=== PATIENT | male | born 2000 | race Caucasian/White ===

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

== ENCOUNTER 2022-06-10 14:30 | Emergency (ER) | payer MEDICAID, SELFPAY ==
[2022-06-10 14:38] VITALS: PULSE 88; RESP 15; TEMP 36.7; O2SAT 97
[2022-06-10 14:56] VITALS: PULSE 88; RESP 15; TEMP 36.7; O2SAT 97
--- NOTE | 2022-06-10 14:59 | ED.GENADUL_ITS ---
Discharge Plan Disposition Patient Disposition: Home Discharge Details Clinical Impression: Laceration of left thigh, Laceration of left index finger Primary Care Provider: Joni Pimentel ED Provider: Richard Mcdonnell Home Meds and New Rx's Prescriptions: Discontinued triamcinolone acetonide 0.1 % cream 1 applic topical BID Qty: 80 0RF Patient Comments: does not take anymore benzonatate 100 mg capsule 100 mg PO TID PRN (Reason: cough, congestion) Qty: 21 0RF Patient Comments: does not take anymore Discharge Instructions Instructions: Laceration (ED), Finger Laceration (ED) Additional Instructions: The tissue adhesive and Steri-Strips will begin to wear off after approximately 5 days time. May completely remove after 1 week. No swimming until healed. Return to the emergency [facility] for fever, redness, foul-smelling discharge from the wound or any other acute concerns. Continue your routine medications. Medical Decision Making 21-year-old male who cut himself the left index finger and left thigh with the tip of pruning christa. His tetanus is up-to-date. He has had no significant finger injury and there is no evidence of damage through the depth of the dermis. This was repaired with tissue adhesive. The left thigh wound was liberally irrigated and explored without evidence of foreign body. This too was repaired with tissue adhesive. Patient understands home care and stable for discharge to home HPI General Mode of arrival: ambulatory . Date/Time Provider Initiated Documentation: 06/10/22 14:44 . Limitations to Documentation: no limitations . Information obtained by: patient . History of Present Illness 21 year old M presents to the emergency department with the chief complaint of Laceration left finger, left thigh, described as mild, Quality is described as dull and constant, and is localized to the left, upper extremity and lower extremity. Patient reports no radiation. Patient started experiencing this minute(s) and it has been constant. No relieving factors improve symptom(s), No exacerbating factors reported . Patient did receive the following treatments prior to arrival, other (The wound was dressed. Tetanus is up-to-date) Related Data Allergies Allergy/AdvReac Type Severity Reaction Status Date / Time amoxicillin [Amoxicillin] Allergy Verified 06/10/22 14:56 ALL CILIINS Allergy Mild Uncoded 06/10/22 14:56 General Stated Complaint: Trauma BOOM: 3 Review of Systems Narrative: No other injuries. PFSH All Active Problems (Updated 06/10/22 @ 15:02 by Richard Mcdonnell MD) Laceration of left thigh (Acute) Laceration of left index finger (Acute) Nocturnal enuresis (Acute) ddavp- in past nml renal u/s 06/15 and urine p/Cr ratio Acne (Acute) topicals then doxy 05/16, topical 2020 - doing well Family history of factor V Leiden mutation (Acute 10/15/13) recommendations do not suggest need to screen for asymptomatic children dad a carrier only Medical History Acne Foot drop, right RESOLVED 02/14 PROBABLY INFLAMED PERONEAL NERVE WITH SQUATTING Vision abnormalities some blackouts & blurred vision Surgical History [place] teeth removed 07/31/20 Family History Father Myocardial infarction Factor 5 Leiden mutation, heterozygous Stroke Other Essential hypertension Uncle Neoplasm Paternal uncle - testicular cancer Other Family history of factor V Leiden mutation Social History Smoking/Tobacco Use Status: Never Second Hand Exposure: No Smoking risk assessment performed?: Yes Alcohol Intake: never Drug use: Never Substance use type: does not use Communication Needs: None current occupation: working in [employer] and [employer] Pets and animals: Yes (2 dogs) Pets and animals: dog(s) Do you feel safe at home: Yes Do you feel safe in your relationship?: Yes Exam Narrative Exam Narrative: GEN: awake, alert, oriented 3. Pleasant, well groomed, interactive. HEAD: Normocephalic, atraumatic NECK: Full ROM, no JOJO, no menigismus CHEST/RESP: No respiratory distress EXT: Full ROM, no edema, the left index finger has superficial abrasion overlying the distal phalanx. The left medial thigh has a 1 cm small laceration through the depth of the dermis. Neuro: Grossly normal neurologic exam, conversant, interactive. Psych: Speech fluent, thoughts congruent, affect normal Course Vital Signs Vital signs: Vital Signs Temperature 36.7 C 06/10/22 14:38 Pulse 88 06/10/22 14:38 Respiratory Rate 15 06/10/22 14:38 Pulse Oximetry 97 06/10/22 14:38 Temperature 36.7 C 06/10/22 14:56 Pulse 88 06/10/22 14:56 Respiratory Rate 15 06/10/22 14:56 Respiratory Effort Normal, Non-Labored 06/10/22 14:54 Respiratory Depth Normal 06/10/22 14:51 Respiratory Pattern Normal 06/10/22 14:51 Blood Pressure Position Sitting 06/10/22 14:38 Pulse Oximetry 97 06/10/22 14:56 Pain Level 4 06/10/22 14:38
== END 2022-06-10 15:06 | disposition home or self-care (01) ==
PROVIDERS: Emergency Provider Emergency Medicine; PCP Pediatrics
DX: S71.112A Laceration without foreign body, left thigh, initial encounter (principal); S61.211A Laceration without foreign body of left index finger without damage to nail, initial encounter; W29.3XXA Contact with powered garden and outdoor hand tools and machinery, initial encounter
CPT/HCPCS: 12001; 99283

== ENCOUNTER 2022-11-19 06:49 | Emergency (ER) | payer MEDICAID, SELFPAY ==
[2022-11-19 06:51] VITALS: BP 151/83; PULSE 68; RESP 20; TEMP 36.6; O2SAT 98
--- NOTE | 2022-11-19 07:03 | ED.GENADUL_ITS ---
Discharge Plan Discharge Details Chief Complaint: Trauma Clinical Impression: Contusion of jaw Primary Care Provider: Joni Pimentel ED Provider: Joni Bender Home Meds and New Rx's Prescriptions: No Action No Known Home Meds Medical Decision Making This is a pleasant 21-year-old male who presents today for left jaw pain after being kicked in the face by a cow. Past medical history is positive for family history of factor V Leiden mutation. Patient states that he was around a towel when it went and kicked him in the left jaw. He had no loss of consciousness. He recalls the entire event. He did take ibuprofen prior to arrival and this is helped with the pain. Pain is made worse with opening and closing of the jaw. He denies any headache or neck pain. No other complaints at this time. No other modifying factors. Exam demonstrates mild tenderness over the mid to lateral aspect of the left jaw. No evidence of tooth deformity or tongue biting. Mild bruising on the inside left cheek. Differential is highest for contusion of the parotid gland and the left jaw, however differential does include fracture. No evidence of dislocation. We will get CT imaging, give Tylenol, monitor closely and reassess. Patient will be signed out to my colleague Dr. Obregon for follow-up on imaging. HPI General Date/Time Provider Initiated Documentation: 11/19/22 06:55 . HPI Narrative: This is a pleasant 21-year-old male who presents today for left jaw pain after being kicked in the face by a cow. Past medical history is positive for family history of factor V Leiden mutation. Patient states that he was around a towel when it went and kicked him in the left jaw. He had no loss of consciousness. He recalls the entire event. He did take ibuprofen prior to arrival and this is helped with the pain. Pain is made worse with opening and closing of the jaw. He denies any headache or neck pain. No other complaints at this time. No other modifying factors. Related Data Home Medications Medication Instructions Recorded Confirmed Unknown [No Known Home Meds] 08/05/22 08/05/22 Allergies Allergy/AdvReac Type Severity Reaction Status Date / Time amoxicillin [Amoxicillin] Allergy Verified 08/05/22 13:08 ALL CILIINS Allergy Mild Uncoded 08/05/22 13:08 General Stated Complaint: Trauma BOOM: 3 Review of Systems All systems reviewed & are unremarkable except as noted in HPI and below PFSH All Active Problems (Updated 11/19/22 @ 07:22 by Joni Bender DO) Contusion of jaw (Acute) Nocturnal enuresis (Acute) ddavp- in past nml renal u/s 06/15 and urine p/Cr ratio Acne (Acute) topicals then doxy 05/16, topical 2020 - doing well Family history of factor V Leiden mutation (Acute 10/15/13) recommendations do not suggest need to screen for asymptomatic children dad a carrier only Medical History Acne Foot drop, right RESOLVED 02/14 PROBABLY INFLAMED PERONEAL NERVE WITH SQUATTING Vision abnormalities some blackouts & blurred vision Surgical History [place] teeth removed 07/31/20 Family History Father Myocardial infarction Factor 5 Leiden mutation, heterozygous Stroke Other Essential hypertension Uncle Neoplasm Paternal uncle - testicular cancer Other Family history of factor V Leiden mutation Social History Smoking/Tobacco Use Status: Never Second Hand Exposure: No Smoking risk assessment performed?: Yes Alcohol Intake: never Drug use: Never Substance use type: does not use Communication Needs: None current 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 3.ENT: Atraumatic external nose and ears. Moist MM. Neck: Symmetric, trachea midline, No thyromegaly. There is no evidence of raccoon eyes, su sign, CSF rhinorrhea, mastoid tenderness, cranial crepitus, hemotympanum, exophthalmos, or hyphema. Patient demonstrates intact dentition with no signs of tooth avulsion or fracture, no signs of jaw deformity, no evidence of a LeFort's fracture, with an intact palate, nose and orbital region. There is no evidence of a nasal septal hematoma. No proptosis. Jaw closes symmetrically. Airway is clear. Patient is able to break a tongue depressor in his teeth bilaterally. No evidence of mastication of the tongue. Mild bruising on the inside of the left cheek. Mild tenderness over the neck of the left jaw, but no asymmetry. 4.CVS: +S1/S2, No murmurs or gallops. Peripheral pulses 2+ and equal in all extremities. Brisk capillary refill in all extremities. 5.RESP: Unlabored respiratory effort. Clear to auscultation bilaterally. No wheezes rales or rhonchi 6.GI: Soft, Nontender/Nondistended, No hepatosplenomegaly. No guarding or rebound. 7.MSK: Normocephalic/Atraumatic, Extremities w/o deformity or ttp No cyanosis or clubbing, Normal movement of all extremities 8.Skin: Warm, Dry. No rashes or lesions. 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 Sensation grossly intact, no focal neurologic deficits. 10.Psych: (AAO) x3. Appropriate mood and affect Course Vital Signs Vital signs: Vital Signs Temperature 36.6 C 11/19/22 06:51 Pulse 68 11/19/22 06:51 Respiratory Rate 20 11/19/22 06:51 Blood Pressure 151/83 H 11/19/22 06:51 Pulse Oximetry 98 11/19/22 06:51 Temperature 36.6 C 11/19/22 06:51 Temperature Source Temporal Artery Scan 11/19/22 06:51 Pulse 68 11/19/22 06:51 Respiratory Rate 20 11/19/22 06:51 Blood Pressure 151/83 H 11/19/22 06:51 Pulse Oximetry 98 11/19/22 06:51 Oxygen Delivery Method Room Air 11/19/22 06:51 Oxygen Flow Rate 0 11/19/22 06:51
[2022-11-19] MEDS: Acetaminophen 500 MG TAB 1000 MG PO (07:15)
--- NOTE | 2022-11-19 07:30 | DI.CT_ITS ---
Exam(s) CT FACIAL WO EXAM: CT FACIAL WO CLINICAL HISTORY: kicked in left jaw by cow. TECHNIQUE: Imaging Protocol: Axial computed tomography images with coronal and sagittal reformatted images were created and reviewed COMPARISON: CT HEAD WITHOUT CONTRAST from 11/14/2014 FINDINGS: CT Face: Facial Bones: No definite fracture is noted in facial bones. Sinuses and Mastoids: Mucous retention cyst or polyp in the right maxillary sinus. The remaining vi sualized paranasal sinuses and mastoid air cells are clear. Globes, extraocular muscles, optic nerves and retrobulbar fat: Normal. Upper aerodigestive tract: Normal. Mandible and bilateral temporomandibular joints: Normal. Soft tissues: Normal. IMPRESSION: 1. No acute facial fracture. 2. Findings were discussed with the emergency department at 7:38 a.m. on 11/19/2022. RADIATION DOSE DELIVERED: 741.15mGy.cm Total DLP 741.15mGy.cm Total DLP DATA REPOSITORY: All CT scans at this facility are submitted to the National Radiology Data Registry (NRDR) Dose Index Registry (DIR) with the [employer] (ACR). RADIATION OPTIMIZATION: All CT scans at this facility use at least one of these dose optimization te chniques: automated exposure control; mA and/or kV adjustment per patient size (includes targeted exa ms where dose is matched to clinical indication); or iterative reconstruction.
[2022-11-19 07:48] VITALS: BP 118/82; PULSE 70; RESP 14; O2SAT 98
== END 2022-11-19 07:50 | disposition home or self-care (01) ==
PROVIDERS: Emergency Provider Student in an Organized Health Care Education/Training Program; PCP Pediatrics
DX: S00.83XA Contusion of other part of head, initial encounter (principal); W55.22XA Struck by cow, initial encounter
CPT/HCPCS: 99284; 70486; 99283

== ENCOUNTER 2023-03-28 19:12 | Emergency (ER) | payer MEDICAID, SELFPAY ==
[2023-03-28 19:15] VITALS: BP 135/55; PULSE 80; RESP 14; TEMP 38.2; O2SAT 97
--- NOTE | 2023-03-28 19:23 | ED.GENADUL_ITS ---
Discharge Plan Disposition Patient Disposition: Home Condition: Stable Discharge Details Clinical Impression: Fever, Pain in ear Primary Care Provider: Joni Pimentel ED Provider: Markell Munoz Home Meds and New Rx's Prescriptions: No Action No Known Home Meds Discharge Instructions Instructions: Earache (ED) Additional Instructions: Viral testing negative. Your ear does not appear infected today or had the appearance that would require antibiotic treatment. Continue Motrin or Tylenol as needed for pain. If your symptoms worsen, please follow-up with your primary care provider for reevaluation Medical Decision Making Emergent evaluation of left ear pain. Initial differential includes viral il lness, otitis externa, no symptoms concerning for mastoiditis. Elevated temp noted. I doubt that the ear based on this examination is causing the fever. He then reported that his family members tested positive for something, will test for viral illness. Viral testing is negative, I do not feel that the patient exam warrants antibiotic treatment at this time. Recommend Motrin Tylenol as needed for pain. Follow-up for reevaluation of symptoms persist or worsen. Lab Data Lab results reviewed: Yes I reviewed the patient's lab results. HPI General Date/Time Provider Initiated Documentation: 03/28/23 19:22 . Limitations to Documentation: no limitations . Information obtained by: patient . HPI Narrative: 22-year-old gentleman without significant past medical history presents for evaluation of left ear pain. Reports 2 days of symptoms. Pain localized to the left ear. Reports that this morning he woke up and he had yellow gunk on his pillow. Has been having a cough. Has not taken any medication for relief. Dad and sister recently tested positive for COVID or something Related Data Home Medications Medication Instructions Recorded Confirmed Unknown [No Known Home Meds] 08/05/22 03/28/23 Allergies Allergy/AdvReac Type Severity Reaction Status Date / Time amoxicillin [Amoxicillin] Allergy Verified 03/28/23 19:25 ALL CILIINS Allergy Mild Uncoded 03/28/23 19:25 General Stated Complaint: EarProblem BOOM: 4 PFSH All Active Problems (Updated 03/28/23 @ 20:23 by Markell Munoz MD) Pain in ear (Acute) Fever (Acute) Nocturnal enuresis (Acute) ddavp- in past nml renal u/s 06/15 and urine p/Cr ratio Acne (Acute) topicals then doxy 05/16, topical 2020 - doing well Family history of factor V Leiden mutation (Acute 10/15/13) recommendations do not suggest need to screen for asymptomatic children dad a carrier only Medical History Foot drop, right RESOLVED 02/14 PROBABLY INFLAMED PERONEAL NERVE WITH SQUATTING Acne Vision abnormalities some blackouts & blurred vision Surgical History [place] teeth removed 07/31/20 Family History Father Myocardial infarction Factor 5 Leiden mutation, heterozygous Stroke Other Essential hypertension Uncle Neoplasm Paternal uncle - testicular cancer Other Family history of factor V Leiden mutation Social History Smoking/Tobacco Use Status: Never Second Hand Exposure: No Smoking risk assessment performed?: Yes Alcohol Intake: never Drug use: Never Substance use type: does not use Communication Needs: None current occupation: working in [employer] and [employer] Pets and animals: Yes (2 dogs) Pets and animals: dog(s) Do you feel safe at home: Yes Do you feel safe in your relationship?: Yes Exam Narrative Exam Narrative: Review of Systems: All systems reviewed & are unremarkable except as noted in HPI and below Well-developed, no acute distress +febrile NACT PERRL, normal conjunctiva Left ear with mild erythema in the canal, TM intact, not bulging or erythematous No significant tenderness with ear movement, no mastoid tenderness. Ear not proptotic Oropharynx clear, no signs of dental infection RRR Unlabored respiratory effort Nondistended abdomen Extremities w/o deformity, no cyanosis, no edema No rashes or lesions. no focal neurologic deficits Appropriate mood and affect Course Vital Signs Vital signs: Vital Signs Temperature 38.2 C H 03/28/23 19:15 Pulse 80 03/28/23 19:15 Respiratory Rate 14 03/28/23 19:15 Blood Pressure 135/55 L 03/28/23 19:15 Pulse Oximetry 97 03/28/23 19:15 Temperature 38.2 C H 03/28/23 19:15 Temperature Source Temporal Artery Scan 03/28/23 19:15 Pulse 80 03/28/23 19:15 Respiratory Rate 14 03/28/23 19:15 Blood Pressure 135/55 L 03/28/23 19:15 Blood Pressure Position Sitting 03/28/23 19:15 Pulse Oximetry 97 03/28/23 19:15 Oxygen Delivery Method Room Air 03/28/23 19:15 Oxygen Flow Rate 0 03/28/23 19:15 Pain Level 6 03/28/23 19:15
[2023-03-28 19:28] VITALS: BP 134/55; PULSE 80; RESP 14; TEMP 38.2; O2SAT 97
[2023-03-28] MEDS: Acetaminophen 500 MG TAB 1000 MG PO (19:39)
[2023-03-28 20:12] LABS: COVID-19 PCR Negative (Negative); Influenza A PCR Negative (Negative); Influenza B PCR Negative (Negative); RSV PCR Negative (Negative)
[2023-03-28 20:17] LABS: Source Nasopharynx
== END 2023-03-28 20:28 | disposition home or self-care (01) ==
PROVIDERS: Emergency Provider Emergency Medicine; PCP Pediatrics
DX: H92.02 Otalgia, left ear (principal); R50.9 Fever, unspecified; Z11.52 Encounter for screening for COVID-19
CPT/HCPCS: 87637; 99282

== ENCOUNTER 2023-04-03 08:24 | Emergency (ER) | payer MEDICAID, SELFPAY ==
[2023-04-03 08:27] VITALS: BP 149/56; PULSE 74; RESP 16; TEMP 36.8; O2SAT 99
[2023-04-03 08:38] VITALS: BP 149/56; PULSE 74; RESP 16; TEMP 36.8; O2SAT 99
--- NOTE | 2023-04-03 08:39 | W.ED.GENAD ---
HPI General Stated Complaint: RespSymp BOOM: 4 Date/Time Provider Initiated Documentation: 04/03/23 08:32. Limitations to Documentation: no limitations. Information obtained by: patient. HPI Narrative: Time seen was 8:45 AM in bed 5. The patient is a healthy 22-year-old male who presents with approximately 10 days of the respiratory illness which began on 03/24/2023. He tells me initially he had L ear pain and a sore throat, both of which have improved and only lasted a day. He states he has had a mild headache and chest congestion. He also states that he has had a cough which is occasionally productive of yellow-white sputum. He also tells me he has had a fever at home to 103.0 F taken with a forehead thermometer. His cough is keeping him awake at night. He has been immunized for COVID. The patient was seen here one week ago, and tells me that he was diagnosed with a viral infection. 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 He denies and neck pain or stiffness, no rashes, no GI symptoms. no rashes, no urinary complaints. Related Data Home Medications Medication Instructions Recorded Confirmed Unknown [No Known Home Meds] 08/05/22 04/03/23 Allergies Allergy/AdvReac Type Severity Reaction Status Date / Time amoxicillin [Amoxicillin] Allergy Verified 04/03/23 08:30 ALL CILIINS Allergy Mild Uncoded 04/03/23 08:30 Review of Systems Narrative: see hpi PFSH All Active Problems (Updated 04/03/23 @ 10:41 by Vanita Yañez MD) Upper respiratory infection, viral (Acute) Pain in ear (Acute) Fever (Acute) Nocturnal enuresis (Acute) ddavp- in past nml renal u/s 06/15 and urine p/Cr ratio Acne (Acute) topicals then doxy 05/16, topical 2020 - doing well Family history of factor V Leiden mutation (Acute 10/15/13) recommendations do not suggest need to screen for asymptomatic children dad a carrier only Medical History Foot drop, right RESOLVED 02/14 PROBABLY INFLAMED PERONEAL NERVE WITH SQUATTING Acne Vision abnormalities some blackouts & blurred vision Surgical History [place] teeth removed 07/31/20 Family History Father Myocardial infarction Factor 5 Leiden mutation, heterozygous Stroke Other Essential hypertension Uncle Neoplasm Paternal uncle - testicular cancer Other Family history of factor V Leiden mutation Social History Smoking/Tobacco Use Status: Never Second Hand Exposure: No Smoking risk assessment performed?: Yes Alcohol Intake: never Drug use: Never Substance use type: does not use Communication Needs: None 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 He is mildly hypertensive with a BP of 149/56. He is not tachycardic, tachypneic or febrile. He has a normal RA O2 sat of 99%. He has normal phonation. He does not appear toxic. Const General: cooperative, healthy appearing, comfortable, no acute distress, well developed, well groomed and well hydrated Nutritional Appearance: average body habitus and well nourished Orientation: alert, awake and oriented x3 HENMT Head: normal to inspection, normocephalic and atraumatic Ears: hearing grossly normal bilaterally, external ears normal and TM's normal bilaterally General nose exam: external nose normal, nares normal and other (mucosa of nares slightly erythematous. normal septum.) Face and sinus: normal facial exam, sinuses nontender, face symmetric and no sinus tenderness Mouth: oral mucosae normal, lip normal, tongue normal, oropharynx normal, moist mucous membranes and other (Normal phonation. The patient is handling secretions.) Throat: posterior oropharynx normal and uvula midline Eyes General: appearance normal, both eyes and all related structures Eyelids: eyelids normal Conjunctivae: conjunctivae normal Sclera: sclerae normal Cornea: corneas normal Pupils: PERRL EOM: EOM intact bilaterally and No nystagmus Direct ophthalmoscopy: normal light reflex Other: no photophobia Neck Neck: normal visual inspection, full ROM, no lymphadenopathy, no meningeal signs, trachea midline, supple and no anterior neck swelling Lymphatic: no lymphadenopathy noted Chest Chest: normal inspection of the chest Resp Effort & Inspection: normal respiratory effort, able to speak in complete sentences, no audible wheezes, no nasal flaring, no respiratory distress, no retractions, no stridor, not tachypneic, no tracheal deviation, no use of accessory muscles, prolonged expiratory phase and other Auscultation: clear to auscultation bilaterally, abnormal I/E ratio, no rales, no rhonchi, no wheezes and no rubs Tactile Fremitus: tactile fremitus absent Other: The patient has a prolonged exp phase. I cannot appreciate any wheezing rales or rhonchi. Cardio Jugular venous pressure: no JVD Palpation: normal PMI Rate: regular rate Rhythm: regular rhythm Heart Sounds: S1 normal, S2 normal, no gallops, no murmurs and no rubs GI Inspection: non-distended Palpation: soft, no hepatosplenomegaly, no guarding and nontender Percussion: normal to percussion Auscultation: normal bowel sounds General: No CVA tenderness Back/Spine/Pelvis Back: no CVA tenderness and No back tenderness Cervical Spine: normal cervical lordosis, cervical ROM normal, No cervical muscular tenderness, No pain with cervical ROM, No cervical spinal tenderness and No step off deformity Thoracic/Lumbar Spine: thoracic and lumbar spine normal to inspection, No thoracic spinal tenderness and No lumbar spinal tenderness Pelvis: no pain with anterior-posterior compression and no pain with lateral compression Skin General skin exam: no rashes or lesions noted, turgor normal, no petechiae, no purpura and other (Skin is normal for ethnicity.) Lesions: no lesions Rashes: no rashes Trauma: no lacerations or abrasions Neuro General: patient alert, patient awake, patient oriented x3, moves all extremities, no meningeal signs, no focal motor deficits and CN's II-XI intact bilaterally Cranial Nerves: CN's II-XI intact bilaterally, PERRL, accommodation normal, EOM intact bilaterally, no nystagmus, facial strength normal, tongue midline, hearing normal and no nystagmus Cognition: normal cognition Speech: speech normal Gait: normal gait Motor: muscle tone normal throughout and strength 5/5 throughout Sensory Exam: no sensory deficits noted Extrem General: normal to inspection, full ROM, capillary refill normal, no clubbing, cyanosis or edema and no calf tenderness Psych Appearance: grossly normal Affect: normal affect Attitude: cooperative Thought Process: normal Thought Content: normal Insight: insight good Judgment: judgment good Other: The patient appears to have capacity make medical decisions. Course 10:35 AM I have reviewed the patient's sinus films lab work and chest x-ray. He feels improved after a DuoNeb. Improved air movement. I haved advised the patient on the results of his tests. I have advised him to use his MDI w/spacer, 3 puffs, 5 min apart q4h prn. I have asked to have him get a new PCP for out patient follow up. I have advised him to return here for any new or worrisome symptoms. He voiced understanding and agreement with the discharge plan. All his questions and concerned were addressed prior to discharge. Reevaluation(s) Time: 10:38 Reevaluation: Improved aeration Vital Signs Vital signs: Vital Signs Temperature 36.8 C 04/03/23 08:27 Pulse 74 04/03/23 08:27 Respiratory Rate 16 04/03/23 08:27 Blood Pressure 149/56 H 04/03/23 08:27 Pulse Oximetry 99 04/03/23 08:27 Temperature 36.8 C 04/03/23 08:38 Temperature Source Temporal Artery Scan 04/03/23 08:38 Pulse 74 04/03/23 08:38 Respiratory Rate 16 04/03/23 08:38 Respiratory Effort Normal, Non-Labored 04/03/23 08:32 Respiratory Depth Normal 04/03/23 08:32 Blood Pressure 149/56 H 04/03/23 08:38 Blood Pressure Position Sitting 04/03/23 08:38 Pulse Oximetry 99 04/03/23 08:38 Oxygen Delivery Method Room Air 04/03/23 08:38 Oxygen Flow Rate 0 04/03/23 08:38 Medical Decision Making This is a healthy 22 yo M who presents with 1 week h/o of an URI.No evidence of hypoxia or respiratory distress. He is complaning of headache but does not have any signs of meningitis or encephalitis, including having normal mental status, nontoxic appearance, no photophobia, rash or meningeal signs. He was seen here on 03/28/23 and I have reviewed that record. He was negative for COVID, flu and RSV. I will repeat these in case he had a previous false negative result. He is still complaining of nasal/facial congestion and I will order limited sinus xrays to rule out bacterial sinusitis and/or airfluid levels or unilateral opacification. I will also order a CXR to rule out pneumonia. Although I cannnot hear any wheezing, he does have a prolonged expiratory phase. I will order a duoneb and if he has subjective improvement, I will likely discharge him home with a MDI + spacer. If there is evidence of bacterial pneumonia or sinusitis, I will discharge him with appropriate abx. I will reassess after duo neb. 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 Differential Diagnosis Differential Diagnosis: viral URI, sinusitis, pneumonia, bronchospasm Medical Records Medical records reviewed: Yes I reviewed the patient's medical records. Imaging Data Radiologic Study: Imaging: X-Ray (X-ray sinus) Radiologist's impression: V rad impression: Unremarkable Radiologic Study #2: Imaging: X-Ray (Chest) Radiologist's impression: vRad impression no acute findings Lab Data Lab results reviewed: Yes I reviewed the patient's lab results. Lab results narrative: COVID FLU RSV NEG Quality:SDOH Health Related Social Needs: No Data to Display Discharge Plan Disposition Patient Disposition: Home Discharge Details Clinical Impression: Upper respiratory infection, viral Primary Care Provider: Joni Pimentel ED Provider: Vanita Yañez Home Meds and New Rx's Prescriptions: No Action No Known Home Meds Discharge Instructions Instructions: Upper Respiratory Infection (ED) Additional Instructions: 1. You will be called by a PCP so he can establish care with an adult primary care provider. 2. Use your albuterol MDI plus spacer, 3 puffs, 5 minutes apart every 4 hours as needed for cough and/or wheezing. 3. Return here for any new or worrisome symptoms. Discharge Data Discharge Date/Time-TO BE ENTERED AT DEPARTURE: 04/03/23 10:49 Discharge Physician: Vanita Yañez
--- NOTE | 2023-04-03 08:45 | DI.RAD_ITS ---
Exam(s) XR SINUS LIMITED 2V EXAM: XR SINUS LIMITED 2V CLINICAL HISTORY: sinus pain, congestion. TECHNIQUE: 2D digital imaging was performed. COMPARISON: CT CT FACIAL WO from 11/19/2022 FINDINGS: The paranasal sinuses are clear. No evidence of air-fluid level. The nasal septum is midline. IMPRESSION: Unremarkable radiographs of the sinuses. DATA REPOSITORY: RADIATION DOSE DELIVERED:
--- NOTE | 2023-04-03 08:45 | DI.RAD_ITS ---
Exam(s) XR CHEST 2V PA LATERAL EXAM: XR CHEST 2V PA LATERAL CLINICAL HISTORY: cough TECHNIQUE: 2D digital imaging was performed of the chest. Two images were obtained. PA and lateral views were obtained. COMPARISON: CR,XR XR CHEST 2V PA LATERAL from 09/06/2020 FINDINGS: MEDIASTINUM: Normal. HEART: Normal. PULMONARY VASCULATURE: Normal. LUNGS: Clear. PLEURAL SPACE: No pleural effusion or pneumothorax. BONE:Within normal limits for the patient's age. OTHER FINDINGS:Normal. IMPRESSION: No acute pulmonary findings. DATA REPOSITORY: RADIATION DOSE DELIVERED:
[2023-04-03] MEDS: Acetaminophen 500 MG TAB 1000 MG PO (09:24)
[2023-04-03 09:26] LABS: COVID-19 PCR Negative (Negative); Influenza A PCR Negative (Negative); Influenza B PCR Negative (Negative); RSV PCR Negative (Negative)
[2023-04-03 09:27] LABS: Source Nasopharynx
[2023-04-03] MEDS: Albuterol/Ipratropium 3 ML UPD VIAL UPD (09:41)
--- NOTE | 2023-04-03 09:43 | DI.VRAD_ITS ---
PROCEDURE INFORMATION: Exam: XR Sinus Exam date and time: 04/03/2023 9:34 AM Age: 22 years old Clinical indication: Other: Sinus pain, congestion TECHNIQUE: Imaging protocol: XR of the sinuses and paranasal structures. Views: Less than 3 views. COMPARISON: No relevant prior studies available. FINDINGS: Sinuses: Well aerated. No opacification. Bones/joints: No fracture. Soft tissues: Unremarkable. IMPRESSION: Unremarkable. Dictated and Authenticated by: Francesco Chilel MD. Ordering:ARMEN Waldron MD
--- NOTE | 2023-04-03 09:46 | DI.VRAD_ITS ---
PROCEDURE INFORMATION: Exam: XR Chest Exam date and time: 04/03/2023 9:36 AM Age: 22 years old Clinical indication: Cough TECHNIQUE: Imaging protocol: Radiologic exam of the chest. Views: 2 views. COMPARISON: CT CHEST PE CTA 09/06/2020 9:58 AM FINDINGS: Lungs: Unremarkable. No consolidation. Pleural spaces: Unremarkable. No pleural effusion. No pneumothorax. Heart/Mediastinum: Unremarkable. No cardiomegaly. Bones/joints: Unremarkable. IMPRESSION: No acute findings. Dictated and Authenticated by: Francesco Chilel MD. Ordering:ARMEN Waldron MD
--- NOTE | 2023-04-03 10:41 | NUR.NOTE ---
Referral given to Care Management for needs PCP, viral URI in 2 weeks. Nursing Note:
[2023-04-03] MEDS: Albuterol HFA 8 GM 60 PUFF INH IH (10:47)
[2023-04-03] MEDS: Inhaler, Assist Device 1 EACH MC (10:47)
== END 2023-04-03 10:49 | disposition home or self-care (01) ==
PROVIDERS: Emergency Provider Emergency Medicine Emergency Medical Services; PCP Pediatrics
DX: R51.9 Headache, unspecified; J06.9 Acute upper respiratory infection, unspecified; R05.1 Acute cough; R09.81 Nasal congestion
CPT/HCPCS: 87637; 94640; 99284; 70210; 71046; 99283; J7620

== ENCOUNTER 2023-05-13 16:47 | Emergency (ER) | payer MEDICAID, SELFPAY ==
[2023-05-13] VITALS (26 sets, daily range): BP systolic 143–154; BP diastolic 67–74; PULSE 59–86; RESP 16–22; TEMP 37.3; O2SAT 96–100
--- NOTE | 2023-05-13 17:00 | RT.EKG_ITS ---
APPROVED REPORT Exam: Resting ECG Reason for Exam: passed out Patient Location: E HR:66 bpm ECG Measurements Heart Rate 66 AXIS NH 146 P 95 QRSd 98 QRS 84 QT 365 T 38 QTc 384 Conclusion Sinus rhythm...normal P axis, V-rate 60- 99 ST elev, probable normal early repol pattern...ST elevation, age<55 Narrow complex normal sinus rhythm at a rate of 66. Right axis deviation. NH and QTc within normal limits. Mild ST segment depressions inferior leads new compared to prior dated 3 years ago. No T w ave inversions. No acute injury pattern. Right axis deviation is persistent.
--- NOTE | 2023-05-13 17:14 | ED.GENADUL_ITS ---
HPI General Date/Time Provider Initiated Documentation: 05/13/23 17:14 . [facility] Narrative: MDM This is an overall very well-appearing normothermic and not tachycardic 22-year-old male with chest pain syncope for which ECG and lab work were obtained and were reassuring. In the emergency department patient subsequently developed right and then left arm numbness for which it CT scan was performed. In the absence of any focal weakness I did not feel that the patient was a tPA candidate developed I did not feel he required transfer for MRI. Furthermore his bilateral upper extremity numbness did not match anatomically with any neurological distribution. No tonic-clonic activity to suggest benefit from EEG. No nuchal rigidity nor fevers nor petechial rash so my suspicion was exceedingly low for meningitis so I did not feel that the patient required a lumbar puncture. No tearing quality to suggest aortic dissection. No positional quality to suggest pericarditis. No pleuritic quality and patient is PERC negative so I did not obtain a D-dimer. No rash to chest to suggest zoster. No pain out of proportion to suggest necrotizing soft tissue infection. Given that the patient's syncopal episode occurred earlier this afternoon we will obtain a single troponin and if this is negative will be reassured against ACS. Patient is not a dialysis patient nor is he hypotensive nor tachycardic so my suspicion for tamponade is exceedingly low. Equal breath sounds and no signs of trauma to the chest so my suspicion for pneumothorax is extremely low. Nonetheless we will obtain chest x-ray. No abdominal pain nor any significant recent emesis to suggest increased risk for esophageal rupture. There is family history of premature coronary artery disease but no family history of sudden cardiac . Patient's vital signs are notable for mildly elevated blood pressure which is similar to prior measurements in the past. HEART SCORE Chest pain Diagnostic Protocol: [-History/Physical/Gestalt: Slightly Suspicious (0)] [-EKG: Normal and/or unchanged from prior EKG (0)] [-AGE: less than 45 (0)] [- RISK FACTORS: 1 - 2 risk factors (+1)] [-TROPONIN: <= normal limit (0)] - TOTAL SCORE: 1 - Risk Factors: DM, current or recent smoker, HTN, HLD, family hx of CAD, obesity - INTERPRETATION: With a total score of 3 or less, risk of major cardiac event within six weeks 1.7%, likely lower with two negative troponins. [I explained to the patient that the risk of subsequent major cardiac event within 1 month is not 0, however risk predicted to be less than 2%. Patient verbalized understanding, accepts this risk and shared and the decision for discharge with PCP follow-up for further evaluation and management. They understand to return to the ED immediately with any worsening symptoms, new symptoms or other concerns.] In the setting of syncope I considered: High risk features: 1. Age of the patient (elderly a greatest risk) 2. Syncope during exertion 3. Family history of sudden Falkner syncope rule: 1. History of CHF 2. Hematocrit < 30 3. EKG abnormalities 4. Present shortness of breath 5. Systolic blood pressure less than 90 Cardiac arrhythmia/EKG or abnormalities considered: 1. ACS: No ST changes 2. Tachy-kimmy: No blocks 3. WPW: No delta wave 4. Brugada: No RSR'; R-bundle appearance 5. HCM: No LVH; needle Qs/ T-wave inversions 6. Short/ Long QT: 300 < QTc < 500; no family hx 7. Arrhythmogenic Right Ventricular Dysplasia: No epsilon wave, no inverted Ts in anterior precordium 7:23 PM Patient metabolic panel with no KOBE. Mild hyperglycemia but no anion gap and normal bicarbonate??not consistent with DKA. Very mild hypokalemia with a serum potassium of 3.4. CBC lacks anemia thrombocytopenia and leukocytosis. Troponin is negative. Chest x-ray read as no acute cardiopulmonary process. 9:25 PM I spoke with Dr. Van from [facility] [place] who reviewed the patient's CT as radiology had initially called a well circumscribed 1 cm low-attenuation area concern for the possibility of a lacunar infarct. These did not align with the patient's symptoms and he felt that this was actually the sulcus. In the setting of the normal CT I met with the patient and his mother and explained the patient's reassuring evaluation in the emergency department. We discussed return indications including any recurrent syncope any worsening chest pain or any other concerns. I have asked health unit trust manager Modesta to have patient seen next week by his primary care provider. He may benefit from an outpatient Holter monitor or possibly an echocardiogram but will defer these decisions to the patient's primary care provider. We discussed return to the emergency department for worsening chest pain any recurrent syncope or any other concerns. Patient understood his return indication was discharged with empiric trial of expectant outpatient management. Chronic conditions affecting the care of the patient: N/A History obtained from an outside historian: Patient's mother External record review: N/A Diagnostic interpretations performed by me: Per my independent interpretation chest x-ray shows: No acute cardiopulmonary process Per my independent interpretation EKG shows: Narrow complex normal sinus rhythm at a rate of 66. Right axis deviation. AK and QTc within normal limits. Mild ST segment depressions inferior leads new compared to prior dated 3 years ago. No T wave inversions. No acute injury pattern. Right axis deviation is persistent. ]Medications: N/A Social determinants of health affecting disposition: N/A Management discussed with: Neurology [facility] [place] Treatment/interventions considered: N/A Response to therapies provided: N/A HPI This is a previously healthy 22-year-old male up-to-date with immunizations arriving to the emergency department via private vehicle with his mother in the setting of syncope. Patient reportedly went to work normally today. He returned home and sat down. He stood to stand and began coughing. He walked into the bathroom and felt unsteady. Subsequently he left the bathroom and stumbled hitting his shoulder on the wall. He subsequently sat back down on the toilet in the bathroom. He passed out. He was dizzy beforehand. He did not hit his head. He did not lose control of his bowels or bladder. There is no family history of any sudden cardiac . He has had chest pain intermittently throughout the day today lasting anywhere between 2 and 10 seconds. It is on the left side of his chest. He has not noticed any rash to his chest. His chest pain is not positional nor pleuritic. He received all his immunizations for childhood. He takes no acute medications. He had cough and cold symptoms since [place]. No history of PE or DVT. Patient's father reportedly had a myocardial infarction when he was 36 years old in 2007 which was not initially detected on laboratory evaluation milrinone blood work. He has subsequently had a CVA. Exam General: Well-appearing in no acute distress speaking in complete sentences. Head: Normocephalic, atraumatic. Eye:[Pupils equal, round reactive to light.] Extraocular eye movements intact. No conjunctival injection. No scleral icterus. Ear, nose, mouth, throat: Grossly normal inspection. Normal voice, handling secretions normally. Neck: Trachea midline. Cardiovascular: Well-perfused distal extremities. Regular rate and rhythm. Respiratory: Nonlabored respiration. Clear lungs bilaterally. Gastrointestinal: Nondistended abdomen. Soft nontender. Musculoskeletal: No edema. Moving all 4 extremities spontaneously. Skin: Normal for age and race, grossly normal temperature and turgor. No acute rash. Neurologic: Alert and appropriate, no apparent acute deficits. Cranial nerves II through XII intact grossly. 5 out of 5 bilateral upper lower extremity strength. No pronator drift. 5/5 lower extremity strength. Patient does have slightly decreased sensation in his right upper extremity in the hand. On subsequent reassessment patient had slightly decreased sensation in his left up per extremity and hand. Psychiatric: Mood and manner are appropriate. Grooming and personal hygiene are appropriate. Related Data Home Medications Medication Instructions Recorded Confirmed Unknown [No Known Home Meds] 08/05/22 05/13/23 Allergies Allergy/AdvReac Type Severity Reaction Status Date / Time amoxicillin [Amoxicillin] Allergy Hives Verified 05/13/23 17:54 ALL CILIINS Allergy Mild Hives Uncoded 05/13/23 17:54 General Stated Complaint: Dizzy/Sync BOOM: 2 Course Vital Signs Vital signs: Vital Signs Temperature 37.3 C 05/13/23 17:06 Pulse 83 05/13/23 17:06 Respiratory Rate 16 05/13/23 17:06 Blood Pressure 143/71 H 05/13/23 17:06 Pulse Oximetry 97 05/13/23 17:06 Temperature 37.3 C 05/13/23 17:06 Temperature Source Tympanic 05/13/23 17:06 Pulse 83 05/13/23 17:06 Respiratory Rate 16 05/13/23 17:06 Blood Pressure 143/71 H 05/13/23 17:06 Blood Pressure Position Sitting 05/13/23 17:06 Pulse Oximetry 97 05/13/23 17:06 Oxygen Delivery Method Room Air 05/13/23 17:06 Oxygen Flow Rate 0 05/13/23 17:06 Pain Level 0 05/13/23 17:06 Medical Decision Making Quality:SDOH Health Related Social Needs: No Data to Display PFSH All Active Problems (Updated 05/13/23 @ 19:25 by Dominick Valenzuela MD) Chest pain, unspecified (Acute) Arm numbness (Acute) Nocturnal enuresis (Acute) ddavp- in past nml renal u/s 06/15 and urine p/Cr ratio Acne (Acute) topicals then doxy 05/16, topical 2020 - doing well Family history of factor V Leiden mutation (Acute 10/15/13) recommendations do not suggest need to screen for asymptomatic children dad a carrier only Medical History Foot drop, right RESOLVED 02/14 PROBABLY INFLAMED PERONEAL NERVE WITH SQUATTING Acne Vision abnormalities some blackouts & blurred vision Surgical History [place] teeth removed 07/31/20 Family History Father Myocardial infarction Factor 5 Leiden mutation, heterozygous Stroke Other Essential hypertension Uncle Neoplasm Paternal uncle - testicular cancer Other Family history of factor V Leiden mutation Social History Smoking/Tobacco Use Status: Never Second Hand Exposure: No Smoking risk assessment performed?: Yes Alcohol Intake: never Drug use: Never Substance use type: does not use Housing: house Communication Needs: None current occupation: working in [employer] Pets and animals: Yes (2 dogs) Pets and animals: dog(s) Do you feel safe at home: Yes Do you feel safe in your relationship?: Yes Discharge Plan Disposition Patient Disposition: Home Discharge Details Clinical Impression: Arm numbness, Chest pain, unspecified Primary Care Provider: Joni Pimentel ED Provider: Dominick Valenzuela Home Meds and New Rx's Prescriptions: No Action No Known Home Meds Discharge Instructions Instructions: Chest Pain (ED) Additional Instructions: You are seen in the emergency department for your chest pain and arm numbness. Your EKG and blood work showed no sign of heart attack. Your CAT scan showed no sign of a stroke. As we discussed please return to the emergency department if you develop weakness if you pass out or develop any black or bloody stools or if you have any other concerns. Otherwise please follow-up with your primary care provider next week.
[2023-05-13 17:50] LABS: Abs Immature Grans 0.02 10^3/uL (0.0-0.06); Absolute Basophil Count 0.06 10^3/uL (0.0-0.2); Absolute Eosinophil Count 0.29 10^3/uL (0.0-0.7); Absolute Lymphocyte Count 1.96 10^3/uL (1.2-3.4); Absolute Monocyte Count 1.15 10^3/uL (0.1-0.8); Basophils % 0.6; Eosinophils % 2.7; HCT 45.1 % (40.0-50.0); HGB 15.5 g/dL (13.5-17.5); Immature Grans % 0.2; Lymphocytes % 18.4; MCHC 34.4 % (32.0-36.0); MCV 85 fL (80-95); MPV 9.2 fL (8.0-11.0); Monocytes % 10.8; Neutrophils % 67.3; Platelet Count 228 10^3/uL (130-400); RBC 5.34 10^6/uL (4.36-5.78); RDW-SD 36.6 fL; WBC 10.68 10^3/uL (4.4-10.8)
[2023-05-13] MEDS: Normal Saline 500 ML IV (17:53)
--- NOTE | 2023-05-13 18:00 | DI.RAD_ITS ---
Exam(s) XR CHEST 2V PA LATERAL EXAM: XR CHEST 2V PA LATERAL CLINICAL HISTORY: Chest pain TECHNIQUE: 2D digital imaging was performed. COMPARISON: CR,XR XR CHEST 2V PA LATERAL from 04/03/2023 FINDINGS: HEART: Normal size. Aorta: Not dilated. PULMONARY VASCULATURE: Normal. LUNGS: Clear. PLEURAL SPACE: No pleural effusion or pneumothorax. BONE:Unremarkable for age. Soft tissues: Unremarkable. IMPRESSION: No acute abnormality. DATA REPOSITORY: RADIATION DOSE DELIVERED:
[2023-05-13 18:18] LABS: Anion Gap 9.6 mmol/L (3-11); BUN 14 mg/dL (7-18); CO2 29.4 mmol/L (21.0-32.0); CREATININE 0.8 mg/dL (0.70-1.30); Chloride 103 mmol/L (98-107); Estimated GFR 129.93 (mL/min/1.73m2); Glucose 114 mg/dL (74-106); Potassium 3.4 mmol/L (3.5-5.1); Sodium 142 mmol/L (136-145); Troponin I < 50 ng/L (< or =60)
--- NOTE | 2023-05-13 19:00 | DI.CT_ITS ---
Exam(s) CT HEAD WO EXAM: CT HEAD WO CLINICAL HISTORY: Intermittent right arm numbness. TECHNIQUE: Imaging Protocol: Axial computed tomography images with coronal and sagittal reformatted images were created and reviewed COMPARISON: CT HEAD WITHOUT CONTRAST from 11/14/[address] FACIAL WO from 11/19/2022 FINDINGS: Ventricles and Extra axial spaces: Normal in size and morphology for the patient's age. Hemorrhage: None. Cerebral parenchyma: Normal. The low attenuation area noted between the frontal and temporal lobes on the right described on the V Rad report has a similar appearance to prior examination from 2014 and appears to represent the normal sulcus. Midline shift: None. Brainstem/Cerebellum: Normal. Calvarium: Normal. Visualized Paranasal sinuses/Mastoids: Mucosal thickening in the ethmoid air cells. No air-fluid lev els are seen in the sinuses. Soft Tissues: Unremarkable. IMPRESSION: No acute intracranial process. If there is continued clinical concern, an MRI may be obtained for fu rther evaluation. RADIATION DOSE DELIVERED: 868.91mGy.cm Total DLP DATA REPOSITORY: All CT scans at this facility are submitted to the National Radiology Data Registry (NRDR) Dose Index Registry (DIR) with the [employer] (ACR). RADIATION OPTIMIZATION: All CT scans at this facility use at least one of these dose optimization te chniques: automated exposure control; mA and/or kV adjustment per patient size (includes targeted exa ms where dose is matched to clinical indication); or iterative reconstruction.
--- NOTE | 2023-05-13 19:48 | DI.VRAD_ITS ---
Addendum created by Sincere Turner MD on 05/13/2023 7:51:41 PM EST: ADDENDUM: THIS REPORT CONTAINS FINDINGS THAT MAY BE CRITICAL TO PATIENT CARE. The findings were verbally communicated via telephone conference with ROCIO HICKEY at 7:51 PM EST on 05/13/2023. The findings were acknowledged and understood. Initial report created on 05/13/2023 7:48:25 PM EST: PROCEDURE INFORMATION: Exam: CT Head Without Contrast Exam date and time: 05/13/2023 7:25 PM Age: 22 years old Clinical indication: Other: Intermittent right arm numbness TECHNIQUE: Imaging protocol: Computed tomography of the head without contrast. COMPARISON: CT FACIAL WO 11/19/2022 7:24 AM FINDINGS: Brain: Well circumscribed 10 mm low-attenuation area in the right frontal and temporal lobe. (series 2, image 17) It was not clearly present on the CT from October 2022. This may represent lacunar infarction. Recommend MRI for further evaluation. Cerebral ventricles: No ventriculomegaly. Paranasal sinuses: Visualized sinuses are unremarkable. No fluid levels. Mastoid air cells: Visualized mastoid air cells are well aerated. Bones/joints: Unremarkable. No acute fracture. Soft tissues: Unremarkable. IMPRESSION: Well circumscribed 10 mm low-attenuation area in the right frontal and temporal lobe. (series 2, image 17) It was not clearly present on the CT from October 2022. This may represent lacunar infarction. Recommend MRI for further evaluation. No acute intracranial hemorrhage Dictated and Authenticated by: Sincere Turner MD. Ordering:SHIRA Tan MD
--- NOTE | 2023-05-14 02:20 | NUR.NOTE ---
Referral faxed to pcp Dr. Yan Pimentel for syncope to follow-up in next week.
== END 2023-05-13 21:56 | disposition home or self-care (01) ==
PROVIDERS: Emergency Provider Emergency Medicine; PCP Pediatrics
DX: R55 Syncope and collapse (principal); R20.0 Anesthesia of skin; R07.9 Chest pain, unspecified; Z82.3 Family history of stroke; Z82.49 Family history of ischemic heart disease and other diseases of the circulatory system
CPT/HCPCS: 80048; 93005; 96360; 99285; 70450; 71046; 84484; 85025; 93010; 99284

== ENCOUNTER 2024-06-15 11:34 | Outpatient (RCR) | payer MEDICAID, SELFPAY | END 2024-06-25 23:59 | disposition home or self-care (01) | LOC: CARDOPNVT 11:34 | PROVIDERS: PCP Pediatrics; Visit Provider Pediatrics | DX: R00.1 Bradycardia, unspecified (principal); R55 Syncope and collapse; Z53.20 Procedure and treatment not carried out because of patient's decision for unspecified reasons | CPT/HCPCS: 93225 ==

== ENCOUNTER 2025-01-07 14:05 | Emergency (ER) | payer MEDICAID, SELFPAY ==
[2025-01-07 14:08] VITALS: BP 124/76; PULSE 97; RESP 18; TEMP 36.8; O2SAT 98
--- NOTE | 2025-01-07 14:55 | W.ED.GENAD ---
Discharge Plan Disposition Patient Disposition: Home Condition: Good Discharge Details Clinical Impression: Pilonidal abscess of cleft Primary Care Provider: Joni Pimentel ED Provider: Bonnie Orozco Home Meds and New Rx's Prescriptions: New sulfamethoxazole-trimethoprim [Bactrim DS] 800-160 mg tablet 1 tab PO BID Qty: 12 0RF Discharge Instructions Instructions: Pilonidal Cyst (DC) Additional Instructions: Antibiotic twice a day for the next 7 days. Tylenol and ibuprofen over the counter for fever. Because your abscess was not drained today, it is very possible that it could worsen despite the antibiotics. If your symptoms are not improving after 48 hours, it is very important that you seek medical attention so the abscess can be drained as that will let the infection out. Call your primary care doctor in the morning to schedule an appointment for within the next 72 hours to followup on your visit here. Return to the emergency department for new or worsening symptoms including fever, worsening pain, nausea, vomiting, or if you have any other concerns. HPI General Mode of arrival: ambulatory. Date/Time Provider Initiated Documentation: 01/07/25 14:11. Limitations to Documentation: no limitations. Information obtained by: patient. HPI Narrative: 24yo previously healthy male presenting with a painful 'bump' on his tailbone. First noted pain about 4-5 days ago, was initially mild but has been more severe over the past 48 hours and hurts to sit. Has not taken anything for pain. Had a friend look at the area and they did not see anything there. Has never had anything like this before. No trauma or injury to the area. No discharge. Otherwise feels well and in his usual state of health with no fevers, chills, nausea, vomiting, abdominal pain, or other concerns. Related Data Home Medications ?Medication ?Instructions ?Recorded ?Confirmed sulfamethoxazole 800 1 tab PO BID #12 tabs 01/07/25 mg-trimethoprim 160 mg tablet (Bactrim DS) Previous Rx's ?Medication ?Instructions ?Recorded sulfamethoxazole 800 1 tab PO BID #12 tabs 01/07/25 mg-trimethoprim 160 mg tablet (Bactrim DS) Allergies Allergy/AdvReac Type Severity Reaction Status Date / Time amoxicillin (Amoxicillin) Allergy Hives Verified 01/07/25 14:09 ALL CILIINS Allergy Mild Hives Uncoded 01/07/25 14:09 General Stated Complaint: RashLesion BOOM: 4 Review of Systems Narrative: see HPI Exam Narrative Exam Narrative: General: Alert, well appearing, well nourished, in no acute distress. Head: Normocephalic, atraumatic Neck: Trachea midline, ?Neck supple. Cardiac: ?RRR Resp: No respiratory distress. Speaking in full sentences. Abd: Non-distended Skin: Small area of slight palpable firmness in upper cleft, tender No overlying erythema or visible abscess. No peiranal abscess. Extremities: ?No deformities.? No peripheral edema. Neurologic: GCS 15. ? Moves all extremities freely against gravity Course Vital Signs Vital signs: Vital Signs Temperature 36.8 C 01/07/25 14:08 Pulse 97 H 01/07/25 14:08 Respiratory Rate 18 01/07/25 14:08 Blood Pressure 124/76 01/07/25 14:08 Pulse Oximetry 98 01/07/25 14:08 Temperature 36.8 C 01/07/25 14:08 Pulse 97 H 01/07/25 14:08 Respiratory Rate 18 01/07/25 14:08 Blood Pressure 124/76 01/07/25 14:08 Pulse Oximetry 98 01/07/25 14:08 Pain Level 8 01/07/25 14:08 Procedure Abscess Drainage Provider that performed the procedure: Bonnie Orozco Medical Decision Making 24yo previously healthy male presenting with a painful 'bump' on his tailbone, first noted 4-5 days ago and increasingly painful over the last 48 hours. Systemically well. Well appearing on arrival with reassuring vital signs. No visible abscess or skin lesion on exam; does have small area in his superior cleft tender to palpation with some slight firmness. Bedside ultrasound shows very small (~1cm) fluid collection consistent with pilonidal cyst/abscess. Not concerning for perirectal or deeper abscess and he is not otherwise well; no indication for labs or CT imaging. Ideally would I&D this however patient is averse to this idea. Discussed risk of infection and symptoms worsening if it is not drained; he would still prefer to try antibiotics first which is not entirely unreasonable. Allergic to penicillins. Will prescribe 7 day course of bactrim. He was instructed to seek medical attention if his symptoms are not improving within the next 48 hours, if he develops a fever or begins to feel unwell. Discharged home; discharge instructions and return precuations were reviewed with patient who verbalized understanding. All questions were answered and he is in full agreement with the plan. PFSH All Active Problems (Updated 01/07/25 @ 14:57 by Bonnie Orozco MD) Pilonidal abscess of owen cleft (Acute) Arm paresthesia, left (Acute) Ongoing > 1 yr Bradycardia (Acute) Nocturnal enuresis (Acute) ddavp- in past nml renal u/s 06/15 and urine p/Cr ratio Acne (Acute) topicals then doxy 05/16, topical 2020 - doing well Family history of factor V Leiden mutation (Acute 10/15/13) recommendations do not suggest need to screen for asymptomatic children dad a carrier only Medical History Foot drop, right RESOLVED 02/14 PROBABLY INFLAMED PERONEAL NERVE WITH SQUATTING Acne Vision abnormalities some blackouts & blurred vision Surgical History [place] teeth removed 07/31/20 Family History Father Myocardial infarction Factor 5 Leiden mutation, heterozygous Stroke Other Essential hypertension Uncle Neoplasm Paternal uncle - testicular cancer Other Family history of factor V Leiden mutation Social History Smoking/Tobacco Use Status: Never Second Hand Exposure: No Smoking risk assessment performed?: Yes Alcohol Intake: never Drug use: Never Substance use type: does not use Housing: house Communication Needs: None current occupation: working in [employer] Pets and animals: Yes (2 dogs) Pets and animals: dog(s) Do you feel safe at home: Yes Do you feel safe in your relationship?: Yes POCUS Exam (ED) Limited Soft Tissue Exam DATE OF EXAM: 01/07/25 TIME OF EXAM: 14:45 PROVIDER THAT PERFORMED THE STUDY: Bonnie Orozco LOCATION OF EXAM: Buttocks/left side REASON FOR EXAM: Abscess VISUALIZED STRUCTURES: Skin and Subcutaneous tissue PERTINENT FINDINGS/IMPRESSION: Abscess 1cm x 1cm pilonidial . Exam Complete
[2025-01-07] MEDS: Sulfameth/Trimeth DS TAB 1 TAB PO (15:05)
[2025-01-07] MEDS: Ibuprofen 800 MG TAB PO (15:05)
[2025-01-07] MEDS: Acetaminophen 500 MG TAB 1000 MG PO (15:05)
[2025-01-07] MEDS: Sulfameth/Trimeth DS, 2 TABS/BTL 1 TAB PO (15:09)
== END 2025-01-07 15:16 | disposition home or self-care (01) ==
PROVIDERS: Emergency Provider Student in an Organized Health Care Education/Training Program; PCP Pediatrics
DX: L05.01 Pilonidal cyst with abscess (principal)
CPT/HCPCS: 99283; 99284; 76857

== ENCOUNTER 2025-01-09 11:13 | Emergency (ER) | payer MEDICAID, SELFPAY ==
[2025-01-09 11:50] VITALS: BP 111/60; PULSE 79; RESP 16; TEMP 37; O2SAT 98
[2025-01-09] MEDS: Lidocaine/Epinephri/Tetracaine Topical Gel 3 ML TP (12:46)
--- NOTE | 2025-01-09 13:55 | W.ED.GENAD ---
Discharge Plan Disposition Patient Disposition: Home Condition: Stable Discharge Details Clinical Impression: Pilonidal abscess Primary Care Provider: Joni Pimentel ED Provider: Man Guillen Home Meds and New Rx's Prescriptions: Continued sulfamethoxazole-trimethoprim [Bactrim DS] 800-160 mg tablet 1 tab PO BID Qty: 12 0RF Discharge Instructions Instructions: Abscess Incision and Drainage ED Additional Instructions: Please perform sitz bath's twice daily for the next few days to encourage drainage. With packing has not fallen out on its own, remove in 2 days. Continue antibiotic as prescribed. Please take ibuprofen 600 mg by mouth every 6-8 hours as needed for pain for the next few days. Please take tylenol (acetaminophen) 650 mg every 6 hours as needed for pain. Be sure to avoid any other medications that containe tylenol (acetaminophen). Please follow-up with general surgery. Return to the emergency department immediately for any worsening or new concerning symptoms. Referrals: [facility] [Provider Group] HPI General Mode of arrival: ambulatory. Date/Time Provider Initiated Documentation: 01/09/25 11:15. Limitations to Documentation: no limitations. Information obtained by: patient. HPI Narrative: HISTORY OF PRESENT ILLNESS This is a 24-year-old male with a history of pilonidal cyst presenting with worsening symptoms. He was seen here on 01/07/2025 and diagnosed with a pilonidal cyst. Incision and drainage were recommended, but he declined. He has been taking Bactrim. The patient reports that his condition has not improved since his last visit. After taking the prescribed antibiotic, Bactrim, he experienced a burning sensation in the affected area within 45 minutes to an hour. This discomfort lasted for several hours. Upon waking up at 3 AM, he felt significant pain, which has since subsided. He reports no fever and has no prior history of similar symptoms. He also mentions that the area was not red before. Related Data Home Medications ?Medication ?Instructions ?Recorded ?Confirmed sulfamethoxazole 800 1 tab PO BID #12 tabs 01/07/25 01/09/25 mg-trimethoprim 160 mg tablet (Bactrim DS) Previous Rx's ?Medication ?Instructions ?Recorded sulfamethoxazole 800 1 tab PO BID #12 tabs 01/07/25 mg-trimethoprim 160 mg tablet (Bactrim DS) Allergies Allergy/AdvReac Type Severity Reaction Status Date / Time amoxicillin (Amoxicillin) Allergy Hives Verified 01/09/25 11:54 ALL CILIINS Allergy Mild Hives Uncoded 01/09/25 11:54 General Stated Complaint: Recheck BOOM: 4 Review of Systems All systems reviewed & are unremarkable except as noted in HPI and below Constitutional Constitutional: Denies fever(s) Exam Const General: cooperative and no acute distress Skin Other: superior left gluteal cleft tender and fluctuant Course Vital Signs Vital signs: Vital Signs Temperature 37.0 C 01/09/25 11:50 Pulse 79 01/09/25 11:50 Respiratory Rate 16 01/09/25 11:50 Blood Pressure 111/60 01/09/25 11:50 Pulse Oximetry 98 01/09/25 11:50 Temperature 37.0 C 01/09/25 11:50 Temperature Source Oral 01/09/25 11:50 Pulse 79 01/09/25 11:50 Respiratory Rate 16 01/09/25 11:50 Blood Pressure 111/60 01/09/25 11:50 Pulse Oximetry 98 01/09/25 11:50 Pain Level 8 01/09/25 11:50 Procedure Abscess Drainage Date of Procedure: 01/09/25 Time of Procedure: 14:07 Provider that performed the procedure: Man Henriquez Time Out Performed: Yes Patient Consented: Written Location of Exam: Buttocks/left side Ultrasound: Used/Image Saved Complications: None Procedure Description Note: Area was prepped and draped sterilely. 11 blade used to make 1 cm incision, large amount of purulent discharge produced, abscess cavity irrigated with sterile saline, quarter inch packing strip placed. Medical Decision Making ASSESSMENT AND PLAN Initial Assessment: 24-year-old male with worsening cutaneous abscess left gluteal cleft, despite taking Bactrim. Afebrile and otherwise well-appearing. Differential Diagnosis: -Tenia's abscess - Pilonidal abscess ED Course: - Topical LET applied. Lidocaine injection administered locally -lidocaine 2% with epinephrine, 8 mL - Incision and drainage performed without complication. Packing placed. - Sitz baths recommended - Tetanus immunization not up-to-date. Tetanus vaccine administered. - Usual and customary discharge instructions were reviewed with the patient. Clinical Impression: - Pilonidal abscess Follow-Up: General Surgery to assess for adequate healing This document was written with the assistance of [employer]. The patient consented to its use. PFSH All Active Problems (Updated 01/09/25 @ 13:58 by Man Guillen MD) Pilonidal abscess (Acute) Pilonidal abscess of owen cleft (Acute) Arm paresthesia, left (Acute) Ongoing > 1 yr Bradycardia (Acute) Nocturnal enuresis (Acute) ddavp- in past nml renal u/s 06/15 and urine p/Cr ratio Acne (Acute) topicals then doxy 05/16, topical 2020 - doing well Family history of factor V Leiden mutation (Acute 10/15/13) recommendations do not suggest need to screen for asymptomatic children dad a carrier only Medical History Foot drop, right RESOLVED 02/14 PROBABLY INFLAMED PERONEAL NERVE WITH SQUATTING Acne Vision abnormalities some blackouts & blurred vision Surgical History [place] teeth removed 07/31/20 Family History Father Myocardial infarction Factor 5 Leiden mutation, heterozygous Stroke Other Essential hypertension Uncle Neoplasm Paternal uncle - testicular cancer Other Family history of factor V Leiden mutation Social History Smoking/Tobacco Use Status: Never Second Hand Exposure: No Smoking risk assessment performed?: Yes Alcohol Intake: never Drug use: Never Substance use type: does not use Housing: house Communication Needs: None current occupation: working in [employer] Pets and animals: Yes (2 dogs) Pets and animals: dog(s) Do you feel safe at home: Yes Do you feel safe in your relationship?: Yes POCUS Exam (ED) Limited Soft Tissue Exam DATE OF EXAM: 01/09/25 TIME OF EXAM: 14:10 PROVIDER THAT PERFORMED THE STUDY: Man Guillen LOCATION OF EXAM: Buttocks/left side REASON FOR EXAM: Pain and Swelling PERTINENT FINDINGS/IMPRESSION: Abscess left gluteal cleft . Exam Complete
[2025-01-09] MEDS: Diph,Pertuss(Acell),Tet Vac/Pf 0.5 ML SYR IM (14:06)
== END 2025-01-09 14:14 | disposition home or self-care (01) ==
PROVIDERS: Emergency Provider Student in an Organized Health Care Education/Training Program; PCP Pediatrics
DX: L05.01 Pilonidal cyst with abscess (principal)
CPT/HCPCS: 99284; 99283; 90471; 10080; 76857; 76942; 90715; J2004